=== PATIENT | male | born 1980 | race Caucasian/White ===

== ENCOUNTER 2017-02-04 08:40 | Day surgery (SDC) | payer SELFPAY ==
[2017-02-04 09:14] VITALS: BMI 20.9
[2017-02-04 09:29] VITALS: O2SAT 100
[2017-02-04] MEDS ORDERED: Lactated Ringer's 500 ML IV ONE ×2 (11:59)
[2017-02-04] MEDS ORDERED: Propofol 10 mg/ml Inj (20 ML) ONE (12:01)
[2017-02-04] MEDS ORDERED: Lactated Ringer's 500 ML IV SCH (12:15)
[2017-02-04 12:52] VITALS: TEMP 98.7
[2017-02-04 13:18] VITALS: BP 120/79; PULSE 60; RESP 15
== END 2017-02-04 13:40 | disposition home or self-care (01) ==
LOC: C.ENDO 08:40
PROVIDERS: ATTEND Internal Medicine Gastroenterology
DX: K20.9 Esophagitis, unspecified (principal); K29.70 Gastritis, unspecified, without bleeding
CPT/HCPCS: 43239; 88305; 88312; 88313; 88342; J2704; J7120